=== PATIENT | female | born 1960 | race Caucasian/White ===

== ENCOUNTER → 2017-02-08 | Outpatient (CLI) | payer OTHER ==
[2017-02-08 15:10] LABS: EKG EKG PERFORMED
[2017-02-08 15:26] LABS: CHCM 31.3; HCT 41.7 % (34.0-46.0); HDW 2.66; HGB 13.4 gm/dL (11.4-16.0); Hypochromasia Slight; MCH 26.9 pg (25.0-35.0); MCHC 32.2 g/dL (31.0-37.0); MCV 83.4 fL (80.0-100.0); Mean Platelet Volume 8.3; RBC 4.99 m/uL (3.80-5.40); RDW 13.3 % (11.5-15.5); WBC 9.4 k/uL (3.8-10.6)
[2017-02-08 15:30] LABS: ALT 41 U/L (9-52); AST 26 U/L (14-36); Alkaline Phosphatase 116 U/L (38-126); Anion Gap 12 mmol/L; Blood Urea Nitrogen 25 mg/dL (7-17); Calcium 9.5 mg/dL (8.4-10.2); Carbon Dioxide 27 mmol/L (22-30); Chloride 105 mmol/L (98-107); Glucose 107 mg/dL (74-99); Non-African American GFR(MDRD) >60 (>60 ml/min/1.73 sqM); Potassium 4.5 mmol/L (3.5-5.1); Prothrombin Time 10.6 sec (9.0-12.0); Sodium 144 mmol/L (137-145); Total Bilirubin 0.5 mg/dL (0.2-1.3); Total Protein 7.2 g/dL (6.3-8.2)
[2017-02-08 15:32] LABS: Appearance,Urine Clear (Clear); Bilirubin,Urine Negative (Negative); Glucose,Urine (UA) Negative (Negative); Ketones,Urine Negative (Negative); Leukocyte Esterase,Urine Negative (Negative); Nitrite,Urine Negative (Negative); Protein,Urine Negative (Negative); Specific Gravity,Urine 1.013 (1.001-1.035); UA Billing (MACRO vs. MICRO) CHEM; Urobilinogen,Urine <2.0 mg/dL (<2.0)
== END | disposition home or self-care (01) ==
LOC: LABPAT 14:55
PROVIDERS: ATTEND Orthopaedic Surgery
DX: Z01.810 Encounter for preprocedural cardiovascular examination (principal)
CPT/HCPCS: 80053; 81003; 85027; 85610; 85730; 87070; 93005

== ENCOUNTER 2017-03-01 04:22 | Inpatient (IN) | payer OTHER ==
[2017-02-22 11:06] VITALS: BMI 42.0
[2017-03-01] MEDS ORDERED: ONDANSETRON 4 MG/2 ML VIAL IVP ONE ×2 (05:00→05:24)
[2017-03-01] MEDS ORDERED: ceFAZolin 2 GM in SODIUM CHLORIDE 0.9% 100 ML IVPB ONE (05:00)
[2017-03-01] MEDS ORDERED: TRANEXAMIC ACID 1,000 MG in SODIUM CHLORIDE 0.9% 100 ML IVPB ONE ×4 (05:00)
[2017-03-01] MEDS ORDERED: ACETAMINOPHEN TAB 500 MG TAB PO ONE (05:00)
[2017-03-01] MEDS ORDERED: MELOXICAM 7.5 MG TAB PO ONE (05:00)
[2017-03-01] MEDS ORDERED: SCOPOLAMINE 1.5MG/72HR PATCH TRANSDERM ONE (05:24)
[2017-03-01] MEDS ORDERED: DEXAMETHASONE SOD PHOSPHATE 10 MG/ML 1 ML VIAL IV ONE (05:24)
[2017-03-01] MEDS ORDERED: MIDAZOLAM 2 MG/2 ML VIAL IV PRN (05:24)
[2017-03-01] MEDS ORDERED: HYDROmorphone 1 MG/ML 1 ML SYRINGE IVP PRN ×4 (05:24→10:16)
[2017-03-01] MEDS: LACTATED RINGERS 1,000 ML IV SCH ×5 (07:00→20:11)
[2017-03-01] MEDS ORDERED: LIDOCAINE 1% 20 ML VIAL (10MG/ML) FOR IV START INTRADERMA ONE (07:04)
[2017-03-01] MEDS ORDERED: fentaNYL (PF) 50 MCG/ML 2 ML AMP ONE (07:48)
[2017-03-01] MEDS ORDERED: MIDAZOLAM 2 MG/2 ML VIAL ONE (07:48)
[2017-03-01] MEDS ORDERED: PROPOFOL 10 MG/ML 20 ML VIAL IV ONE (07:48)
[2017-03-01] MEDS ORDERED: SODIUM CHLORIDE 0.9% 100 ML BAG ONE (07:48)
[2017-03-01] MEDS ORDERED: TRANEXAMIC ACID 1,000 MG/10 ML VIAL ONE (07:48)
[2017-03-01] MEDS ORDERED: SODIUM CHLORIDE 0.9% 50 ML with ceFAZolin 1,000 MG IV ONE ×2 (07:55)
[2017-03-01] MEDS ORDERED: ROPIVACAINE 246.25 MG, EPINEPHrine 0.5 MG, KETOROLAC 30 MG, cloNIDine HCL/PF 80 MCG, WA... MISCELLANE ONE ×5 (08:00)
[2017-03-01] MEDS ORDERED: ceFAZolin 3,000 MG in SODIUM CHLORIDE 0.9% IRRIGATIO 3,000 ML IRRIGATION ONE (08:20)
[2017-03-01] MEDS ORDERED: LACTATED RINGERS 1,000 ML IV ONE (09:47)
[2017-03-01] MEDS ORDERED: ACETAMINOPHEN TAB 325 MG TAB PO PRN (10:16)
[2017-03-01] MEDS ORDERED: hydrOXYzine PAMOATE 25 MG CAP PO PRN (10:16)
[2017-03-01] MEDS ORDERED: MAGNESIUM HYDROXIDE 2,400 MG/10 ML CUP PO PRN (10:16)
[2017-03-01] MEDS ORDERED: ONDANSETRON 4 MG/2 ML VIAL IVP PRN (10:16)
[2017-03-01] MEDS ORDERED: NA PHOS,M-B/NA PHOS,DI-BA 133 ML ENEMA RECTAL PRN (10:16)
[2017-03-01] MEDS ORDERED: BISACODYL 10 MG SUPP RECTAL PRN (10:16)
[2017-03-01] MEDS ORDERED: NALOXONE 0.4 MG/ML 1 ML VIAL IV PRN (10:16)
[2017-03-01] MEDS ORDERED: HYDROcodone/APAP 5-325MG 1 EACH TAB PO PRN (10:16)
--- NOTE | 2017-03-01 10:37 | XR ---
EXAMINATION TYPE: XR knee limited RT DATE OF EXAM: 03/01/2017 COMPARISON: NONE TECHNIQUE: Two views submitted HISTORY: Post op FINDINGS: There is a prosthetic knee in near anatomic alignment. There is soft tissue edema and emphysema. IMPRESSION: 1. Postoperative change. Appears in near-anatomic alignment
[2017-03-01 10:47] VITALS: RESP 16
--- NOTE | 2017-03-01 10:51 | P.OP ---
Date of Procedure: 03/01/17 Preoperative Diagnosis: Postoperative Diagnosis: Procedure(s) Performed: PREOPERATIVE DIAGNOSIS: Right knee severe osteoarthritis with genu varum POSTOPERATIVE DIAGNOSIS: Right knee severe osteoarthritis with genu varum OPERATION: Right knee cemented total replacement arthroplasty. ANESTHESIA: Spinal ESTIMATED BLOOD LOSS: 100 ml. WARD SERVICE SUPERVISOR: Tayler Vargas PA-C (assistance with: patient positioning, retraction, exposure, hemostasis, leg positioning, implantation, irrigation, closure, dressing) COMPLICATIONS: None apparent. COMPONENTS IMPLANTED: Persona system from [employer] INDICATIONS: Ms. Knott is a 56-year-old female with a history of bilateral knee osteoarthritis. The patient's knees are end-stage, and conservative management has failed. Although she has a history of morbid obesity, she has attempted various weight loss modalities including bariatric surgery with limited success. She wishes to proceed with right knee replacement first, understanding the increased risk of complications secondary to her obesity. The operation of knee replacement has been discussed at length in the office, as well as potential risks and complications. These are inclusive of, but not limited to: bleeding, infection, scarring, discomfort, blood vessel and nerve damage, need for further surgery, failure to relieve symptoms, persistence, recurrence, or worsening of problems, loosening, dislocation, wear, blood clot, pulmonary embolism, , gait dysfunction, stiffness, and other risks as discussed in the office. The patient elects to proceed and the consent form has been signed. PROCEDURE: The patient was taken to the operating room and positioned on the operating room table in the supine position. Anesthesia was initiated. Care was taken to make sure that all pressure points were adequately padded. The operative lower extremity was prepped and draped in the usual aseptic fashion using ChloraPrep. Ioban drape was used for the case and the patient received intravenous antibiotics within one hour of the incision. A pneumotourniquet and leg boucher were used for the case. The limb was exsanguinated with an Esmarch bandage and the tourniquet was inflated to 350 mmHg. Time-out was called confirming the patient's identity, side, procedure and administration of antibiotics. The incision was then created midline directly over the knee, carried down through skin and into the subcutaneous tissues and down to fascia. Full thickness subcutaneous medial flap was developed. Medial parapatellar arthrotomy was performed and the interior of the knee was inspected. There was end-stage osteoarthritis of the knee with a mild to moderate genu varum type deformity. The fat pad was excised and proximal medial release on the tibia was completed using meticulous dissection and a curved osteotome. The anterior cruciate ligament was taken down. Note was made of significant attrition of the anterior and significant degenerative appearance of the posterior cruciate ligaments. The exposure was excellent. The knee was flexed 90 degrees and the patella was everted. A spot was chosen on the femur approximately 1 cm anterior to the posterior cruciate ligament insertion and an intramedullary hole was created within the femur. The intramedullary guide was then set to 5 degrees of valgus. The distal cutting block was attached and pinned into position. An appropriate amount of distal femoral resection was set. The oscillating saw was then used to make the distal femoral cut. This cut was confirmed to be flat with the flat end of an osteotome. The retractors were placed around the tibia and the tibial surface was addressed. The angle and depth of resection was adjusted using an extramedullary cutting guide. The guide had a built-in 3 degree posterior slope cut. Once the cutting guide was adjusted appropriately and in line with the axis of the tibia and confirmed to be in good position in relation to the second metatarsal and transmalleolar axis, the tibial cut was then created with protection of the posterior neurovascular structures and the collateral ligaments. The tibial cut surface was removed and sized. Femoral sizing was then accomplished using anterior referencing. Care was taken to analyze the posterior condyles for signs of deficiency or severe wear, and adjustments to the guide were made, as appropriate. 3 degree external rotation pins were placed. The cutting jig for the femur was applied to these pins. The planned cuts were further analyzed prior to performing them with the oscillating saw. No femoral notching was produced. Bone fragments were removed and the cut surfaces were finished, as necessary, with a reciprocating saw. Spacer block technique was then used to confirm that the flexion and extension gaps were equal. Soft tissue releases and adjustment of the tibial and/or femoral cuts were made, as necessary, until the gaps were equal. This included release of the posterior cruciate ligament, which was tight in this patient and , if left unreleased, would have resulted in poor kinematics and possibly early loosening. The femur was then further finished for a posterior cruciate ligament substituting component. Patellar resurfacing was performed using a reamer. The size of the required patellar component was estimated and the patellar surface was then reamed down to a residual thickness which would recreate the [place] thickness with the component. The placement of the patellar component was influenced by the degree of patellar subluxation, if any, noted on the preoperative x-rays. Prior to placing trial components, anesthetic solution consisting of ropivicaine with epinephrine, ketorolac, and clonidine was injected carefully and methodically in a grid pattern using aspiration technique into the soft tissue around the knee circumferentially, starting with the deeper tissues first and progressing to fascia, and then finally the skin/subcutaneous tissue. Particular care was taken when injecting the posterior capsule. The trial components were inserted. The tibial tray was allowed to self center and the patella was noted to track very well. The position of the tibial component was marked and the tibia was then finished for a stemmed tibial component. Cement was mixed on the back table and applied to the final components. Trial components were removed and the cut surfaces of the bone were pulse lavaged thoroughly and dried. Cement was then applied to the tibial surface and pressurized into the surface using finger pressurization technique. The tibial component was then applied and excess cement was removed after it was impacted securely and noted to be flush with the cut surface. In similar fashion, the cement was applied to the cut femoral surface, pressurized in using finger pressurization and the component was impacted into place. Excess cement was removed. The polyethylene spacer was then implanted and locked into position. The patellar component was then applied in similar technique and a patellar clamp was used to hold the patella in place as the cement hardened. Once the cement had fully hardened, the knee was reinspected. Any other cement extrusion was removed and final kinematic testing showed range of motion from 0 to 130 degrees with excellent stability, both medially and laterally and appropriate alignment of the leg. Patellar tracking was excellent. The knee was then thoroughly pulse lavaged with normal saline. The tourniquet was deflated and hemostasis was obtained with electrocautery and IV tranexamic acid, 1 g given at the start of the operation and 1 g at the start of closure. Closure was with #2 Ethibond in the fascia/capsule and supplemented with #2 Quill, 2-0 Vicryl suture was used for the subcutaneous tissues and 3-0 Quill for the skin. Dermabond/Steri-Strips were then applied. A lightly compressive dressing was applied using Webril and an Elmer wrap. The patient was then transferred to [facility] and taken to the recovery room in stable condition. Sponge and needle counts were correct. Implants: Indications for Procedure: Operative Findings: Description of Procedure:
[2017-03-01] MEDS: HYDROcodone/APAP 5-325MG 1 EACH TAB PO PRN ×3 (12:18→23:45)
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
[2017-03-01] MEDS: ceFAZolin 2 GM in SODIUM CHLORIDE 0.9% 100 ML IVPB SCH ×2 (18:10→23:37)
[2017-03-01] MEDS: ASPIRIN 325 MG TAB PO SCH (20:08)
[2017-03-01] MEDS ORDERED: SENNOSIDES-DOCUSATE SODIUM 1 EACH TAB PO SCH (21:00)
[2017-03-01] MEDS ORDERED: TEMAZEPAM 15 MG CAP PO PRN (22:00)
[2017-03-02] MEDS: LACTATED RINGERS 1,000 ML IV SCH (03:41)
[2017-03-02] MEDS: HYDROcodone/APAP 5-325MG 1 EACH TAB PO PRN ×2 (05:30→12:23)
[2017-03-02 07:33] LABS: Basophils % (A) 0 %; CH 26.2; CHCM 31.2; Eosinophils % (A) 0 %; HCT 32.9 % (34.0-46.0); HDW 2.55; HGB 10.5 gm/dL (11.4-16.0); Hypochromasia Slight; Luc % (Auto) 1; Lymphocytes # (A) 1.3 k/uL (1.0-4.8); Lymphocytes % (A) 11 %; MCH 26.9 pg (25.0-35.0); MCV 84.1 fL (80.0-100.0); Mean Platelet Volume 8.5; Monocytes # (A) 0.5 k/uL (0-1.0); Monocytes % (A) 4 %; Neutrophils # (A) 10.4 k/uL (1.3-7.7); Neutrophils % (A) 84 %; RBC 3.91 m/uL (3.80-5.40); RDW 13.4 % (11.5-15.5); WBC 12.4 k/uL (3.8-10.6); WBC (Perox) 12.04
[2017-03-02] MEDS: ASPIRIN 325 MG TAB PO SCH (07:33)
[2017-03-02] MEDS ORDERED: MELOXICAM 7.5 MG TAB PO SCH (09:00)
[2017-03-02 09:41] VITALS: BP 123/77; PULSE 54; TEMP 97.4
--- NOTE | 2017-03-02 10:11 | P.DS ---
Providers Date of admission: 03/01/17 06:12 Expected date of discharge: 03/02/17 Attending physician: Juan Bustamante Consults: 03/01/17 10:16 Consult Physician Routine Consulting Provider: Sixto Licea Consult Reason/Comments: medical management Do you want consulting provider notified?: Yes Primary care physician: Sb Lopez - Discharge Diagnosis(es) (1) Primary localized osteoarthritis of right knee Current Visit: Yes Status: Acute (2) Status post right knee replacement Current Visit: Yes Status: Acute Hospital Course: This is a 56-year-old female who was last seen with complaint of continued right knee pain. The patient has a known history of degenerative arthritis of the right knee and presents to discuss surgical options. After discussion and consideration the patient elects to proceed with total right knee arthroplasty. The patient is seen preoperatively by Dr. Brenner and cleared for surgery. The patient is admitted to [facility] for total right knee arthroplasty. The procedures performed without complication or sequelae. Patient is doing well postoperatively. Vital signs are stable at discharge. Labs are stable at discharge. the patient is ambulating well with walker with minimal assistance. The patient is discharged to home on postop day #1 pending medical clearance. Please see orders and refer to the med rec for accurate list of medications. Patient Condition at Discharge: Good Plan - Discharge Summary New Discharge Prescriptions: New HYDROcodone/APAP 5-325MG [[place] 5-325] 1 - 2 each PO Q4-6H PRN #90 tab PRN Reason: Pain Sennosides-Docusate Sodium [Senokot-S] 1 tab PO BID #60 tablet Warfarin [Coumadin] 2.5 mg PO DAILY #30 tab No Action Loratadine [Claritin] 10 mg PO DAILY PRN PRN Reason: allergies Furosemide [Lasix] 40 mg PO DAILY Citalopram Hydrobromide [CeleXA] 40 mg PO QAM Omeprazole [PriLOSEC] 40 mg PO AC-BRKFST #30 cap traMADol HCL [Ultram] 50 mg PO Q6H PRN PRN Reason: Pain Cetirizine HCl [Zyrtec] 10 mg PO DAILY PRN PRN Reason: allergies Meloxicam [Mobic] 15 mg PO DAILY Discharge Medication List Citalopram Hydrobromide [CeleXA] 40 mg PO QAM 06/03/15 [History] Furosemide [Lasix] 40 mg PO DAILY 06/03/15 [History] Loratadine [Claritin] 10 mg PO DAILY PRN 06/03/15 [History] Omeprazole [PriLOSEC] 40 mg PO AC-BRKFST #30 cap 06/05/15 [Rx] Cetirizine HCl [Zyrtec] 10 mg PO DAILY PRN 02/22/17 [History] Meloxicam [Mobic] 15 mg PO DAILY 02/22/17 [History] traMADol HCL [Ultram] 50 mg PO Q6H PRN 02/22/17 [History] HYDROcodone/APAP 5-325MG [[place] 5-325] 1 - 2 each PO Q4-6H PRN #90 tab 03/01/17 [Rx] Sennosides-Docusate Sodium [Senokot-S] 1 tab PO BID #60 tablet 03/01/17 [Rx] Warfarin [Coumadin] 2.5 mg PO DAILY #30 tab 03/02/17 [Rx] Follow up Appointment(s)/Referral(s): aTyler Vargas, PAC [PHYSICIAN [facility]] - 2 Weeks Ambulatory/Diagnostic Orders: Continuous Passive Motion (CPM) Machine [DME.AMB1] Time Frame: 3 Weeks, Facility : [facility], Location: Case Management Prothrombin Time INR [LAB.AMB] Location: Determined By Patient Activity/Diet/Wound Care/Special Instructions: May bear wt as tolerated w walker. May shower if no drainage from incision. CPM 5-6h daily. Discharge Disposition: HOME WITH HOME HEALTH SERVICES
== END 2017-03-02 13:00 | disposition home health service (06) | DRG 470 ==
LOC: 2ORMAIN 06:12 → 3SUR 10:15
PROVIDERS: ADMIT Orthopaedic Surgery; ATTEND Orthopaedic Surgery
PROC: 0SRC0J9 Replacement of Right Knee Joint with Synthetic Substitute, Cemented, Open Approach (ICD-10-PCS; principal; 2017-03-01 08:00)
DX: M17.11 Unilateral primary osteoarthritis, right knee (principal); E66.01 Morbid (severe) obesity due to excess calories; I11.9 Hypertensive heart disease without heart failure; I36.1 Nonrheumatic tricuspid (valve) insufficiency; M21.161 Varus deformity, not elsewhere classified, right knee; I48.0 Paroxysmal atrial fibrillation; E78.1 Pure hyperglyceridemia; E78.5 Hyperlipidemia, unspecified; R60.0 Localized edema; G47.33 Obstructive sleep apnea (adult) (pediatric); K21.9 Gastro-esophageal reflux disease without esophagitis; F90.9 Attention-deficit hyperactivity disorder, unspecified type; I83.91 Asymptomatic varicose veins of right lower extremity; R26.81 Unsteadiness on feet; F32.9 Major depressive disorder, single episode, unspecified; F41.9 Anxiety disorder, unspecified; Z87.891 Personal history of nicotine dependence; Z79.891 Long term (current) use of opiate analgesic; Z96.651 Presence of right artificial knee joint; Z79.1 Long term (current) use of non-steroidal anti-inflammatories (NSAID); Z80.8 Family history of malignant neoplasm of other organs or systems; Z79.899 Other long term (current) drug therapy; Z82.49 Family history of ischemic heart disease and other diseases of the circulatory system; Z90.710 Acquired absence of both cervix and uterus; Z90.49 Acquired absence of other specified parts of digestive tract; Z98.84 Bariatric surgery status; Z90.411 Acquired partial absence of pancreas; Z91.410 Personal history of adult physical and sexual abuse; Z87.19 Personal history of other diseases of the digestive system; Z87.11 Personal history of peptic ulcer disease
CPT/HCPCS: 85025; 88300

== ENCOUNTER → 2017-04-19 | Outpatient (CLI) | payer OTHER ==
[2017-04-19 12:25] LABS: CHCM 31.4; HCT 38.6 % (34.0-46.0); HDW 2.74; HGB 12.2 gm/dL (11.4-16.0); Hypochromasia Slight; MCH 26.4 pg (25.0-35.0); MCHC 31.7 g/dL (31.0-37.0); Mean Platelet Volume 8.1; RBC 4.64 m/uL (3.80-5.40); RDW 14.3 % (11.5-15.5); WBC 8.1 k/uL (3.8-10.6)
[2017-04-19 12:29] LABS: Appearance,Urine Clear (Clear); Bilirubin,Urine Negative (Negative); Glucose,Urine (UA) Negative (Negative); Ketones,Urine Negative (Negative); Leukocyte Esterase,Urine Negative (Negative); Nitrite,Urine Negative (Negative); Protein,Urine Negative (Negative); Specific Gravity,Urine 1.016 (1.001-1.035); UA Billing (MACRO vs. MICRO) CHEM; Urobilinogen,Urine <2.0 mg/dL (<2.0)
[2017-04-19 12:38] LABS: ALT 35 U/L (9-52); AST 25 U/L (14-36); Alkaline Phosphatase 120 U/L (38-126); Anion Gap 9 mmol/L; Blood Urea Nitrogen 25 mg/dL (7-17); Calcium 9.5 mg/dL (8.4-10.2); Carbon Dioxide 31 mmol/L (22-30); Chloride 101 mmol/L (98-107); Glucose 89 mg/dL (74-99); Non-African American GFR(MDRD) >60 (>60 ml/min/1.73 sqM); Potassium 5.3 mmol/L (3.5-5.1); Sodium 141 mmol/L (137-145); Total Bilirubin 0.4 mg/dL (0.2-1.3); Total Protein 7.3 g/dL (6.3-8.2)
[2017-04-19 12:47] LABS: Partial Thromboplastin Time 23.7 sec (22.0-30.0)
== END | disposition home or self-care (01) ==
LOC: LABPAT 11:11
PROVIDERS: ATTEND Orthopaedic Surgery
DX: Z01.812 Encounter for preprocedural laboratory examination (principal); Z01.818 Encounter for other preprocedural examination; Z51.81 Encounter for therapeutic drug level monitoring; Z79.01 Long term (current) use of anticoagulants
CPT/HCPCS: 36415; 80053; 81003; 85027; 85610; 85730; 87070

== ENCOUNTER 2017-05-10 12:59 | Inpatient (IN) | payer OTHER ==
[2017-05-03 10:51] VITALS: BMI 41.1
[~2017-05-10 12:59] MED LIST: ACETAMINOPHEN TAB 500 MG TAB PO ONE; HYDROmorphone 0.5 MG/0.5 ML SYRINGE IVP PRN; LACTATED RINGERS 1,000 ML IV SCH; LIDOCAINE 1% 20 ML VIAL (10MG/ML) FOR IV START INTRADERMA PRN; MELOXICAM 7.5 MG TAB PO ONE; ONDANSETRON 4 MG/2 ML VIAL IVP ONE; TRANEXAMIC ACID 1,000 MG in SODIUM CHLORIDE 0.9% 100 ML IVPB ONE; ceFAZolin 2 GM in SODIUM CHLORIDE 0.9% 100 ML IVPB ONE
--- NOTE | 2017-05-10 15:33 | P.OP ---
Date of Procedure: 05/10/17 Procedure(s) Performed: PREOPERATIVE DIAGNOSIS: Left knee severe osteoarthritis with genu varum POSTOPERATIVE DIAGNOSIS: Left knee severe osteoarthritis with genu varum OPERATION: Left knee cemented total replacement arthroplasty. ANESTHESIA: Spinal ESTIMATED BLOOD LOSS: 100 ml. SUPERINT[employer]ENT [employer]: Tayler Vargas PA-C (assistance with: patient positioning, retraction, exposure, hemostasis, leg positioning, implantation, irrigation, closure, dressing) COMPLICATIONS: None apparent. COMPONENTS IMPLANTED: Persona system from [employer] INDICATIONS: Mrs. Knott is a 57-year-old female with a history of knee osteoarthritis. She has already undergone right knee replacement successfullya few months ago. The operation of knee replacement has been discussed at length in the office, as well as potential risks and complications. These are inclusive of, but not limited to: bleeding, infection, scarring, discomfort, blood vessel and nerve damage, need for further surgery, failure to relieve symptoms, persistence, recurrence, or worsening of problems, loosening, dislocation, wear, blood clot, pulmonary embolism, , gait dysfunction, stiffness, and other risks as discussed in the office. The patient elects to proceed and the consent form has been signed. PROCEDURE: The patient was taken to the operating room and positioned on the operating room table in the supine position. Anesthesia was initiated. Care was taken to make sure that all pressure points were adequately padded. The operative lower extremity was prepped and draped in the usual aseptic fashion using ChloraPrep. Ioban drape was used for the case and the patient received intravenous antibiotics within one hour of the incision. A pneumotourniquet and leg boucher were used for the case. The limb was exsanguinated with an Esmarch bandage and the tourniquet was inflated to 300 mmHg. Time-out was called confirming the patient's identity, side, procedure and administration of antibiotics. The incision was then created midline directly over the knee, carried down through skin and into the subcutaneous tissues and down to fascia. Full thickness subcutaneous medial flap was developed. Medial parapatellar arthrotomy was performed and the interior of the knee was inspected. There was end-stage osteoarthritis of the knee with a mild to moderate genu varum type deformity. The fat pad was excised and proximal medial release on the tibia was completed using meticulous dissection and a curved osteotome. The anterior cruciate ligament was taken down. Note was made of significant attrition of the anterior and significant degenerative appearance of the posterior cruciate ligaments. The exposure was excellent. The knee was flexed 90 degrees and the patella was everted. A spot was chosen on the femur approximately 1 cm anterior to the posterior cruciate ligament insertion and an intramedullary hole was created within the femur. The intramedullary guide was then set to 5 degrees of valgus. The distal cutting block was attached and pinned into position. An appropriate amount of distal femoral resection was set. The oscillating saw was then used to make the distal femoral cut. This cut was confirmed to be flat with the flat end of an osteotome. The retractors were placed around the tibia and the tibial surface was addressed. The angle and depth of resection was adjusted using an extramedullary cutting guide. The guide had a built-in 3 degree posterior slope cut. Once the cutting guide was adjusted appropriately and in line with the axis of the tibia and confirmed to be in good position in relation to the second metatarsal and transmalleolar axis, the tibial cut was then created with protection of the posterior neurovascular structures and the collateral ligaments. The tibial cut surface was removed and sized. Femoral sizing was then accomplished using anterior referencing. Care was taken to analyze the posterior condyles for signs of deficiency or severe wear, and adjustments to the guide were made, as appropriate. 3 degree external rotation pins were placed. The cutting jig for the femur was applied to these pins. The planned cuts were further analyzed prior to performing them with the oscillating saw. No femoral notching was produced. Bone fragments were removed and the cut surfaces were finished, as necessary, with a reciprocating saw. Spacer block technique was then used to confirm that the flexion and extension gaps were equal. Soft tissue releases and adjustment of the tibial and/or femoral cuts were made, as necessary, until the gaps were equal. This included release of the posterior cruciate ligament, which was tight in this patient and , if left unreleased, would have resulted in poor kinematics and possibly early loosening. The femur was then further finished for a posterior cruciate ligament substituting component. Patellar resurfacing was performed using a reamer. The size of the required patellar component was estimated and the patellar surface was then reamed down to a residual thickness which would recreate the nightmute thickness with the component. The placement of the patellar component was influenced by the degree of patellar subluxation, if any, noted on the preoperative x-rays. Prior to placing trial components, anesthetic solution consisting of ropivicaine with epinephrine, ketorolac, and clonidine was injected carefully and methodically in a grid pattern using aspiration technique into the soft tissue around the knee circumferentially, starting with the deeper tissues first and progressing to fascia, and then finally the skin/subcutaneous tissue. Particular care was taken when injecting the posterior capsule. The trial components were inserted. The tibial tray was allowed to self center and the patella was noted to track very well. The position of the tibial component was marked and the tibia was then finished for a stemmed tibial component. Cement was mixed on the back table and applied to the final components. Trial components were removed and the cut surfaces of the bone were pulse lavaged thoroughly and dried. Cement was then applied to the tibial surface and pressurized into the surface using finger pressurization technique. The tibial component was then applied and excess cement was removed after it was impacted securely and noted to be flush with the cut surface. In similar fashion, the cement was applied to the cut femoral surface, pressurized in using finger pressurization and the component was impacted into place. Excess cement was removed. The polyethylene spacer was then implanted and locked into position. The patellar component was then applied in similar technique and a patellar clamp was used to hold the patella in place as the cement hardened. Once the cement had fully hardened, the knee was reinspected. Any other cement extrusion was removed and final kinematic testing showed range of motion from 0 to 130 degrees with excellent stability, both medially and laterally and appropriate alignment of the leg. Patellar tracking was excellent. The knee was then thoroughly pulse lavaged with normal saline. The tourniquet was deflated and hemostasis was obtained with electrocautery and IV tranexamic acid, 1 g given prior to inflation of the tourniquet and another gram given at the time of closure. Closure was with #2 Ethibond in the fascia and supplemented with #2 Quill, 2-0 Vicryl suture was used for the subcutaneous tissues and 3-0 Quill for the skin. Dermabond/Steri-Strips were then applied. A lightly compressive dressing was applied using Webril and an Elmer wrap. The patient was then transferred to stretcher and taken to the recovery room in stable condition. Sponge and needle counts were correct.
[2017-05-10] MEDS ORDERED: ROPIVACAINE 246.25 MG, EPINEPHrine 0.5 MG, KETOROLAC 30 MG, cloNIDine HCL/PF 80 MCG, WA... MISCELLANE STA ×5 (15:38)
[2017-05-10] MEDS ORDERED: NA PHOS,M-B/NA PHOS,DI-BA 133 ML ENEMA RECTAL PRN (15:39)
[2017-05-10] MEDS ORDERED: BISACODYL 10 MG SUPP RECTAL PRN (15:39)
[2017-05-10] MEDS ORDERED: HYDROmorphone 0.5 MG/0.5 ML SYRINGE IVP PRN ×2 (15:39)
[2017-05-10] MEDS ORDERED: ONDANSETRON 4 MG/2 ML VIAL IVP PRN (15:39)
[2017-05-10] MEDS ORDERED: ACETAMINOPHEN TAB 325 MG TAB PO PRN (15:39)
[2017-05-10] MEDS ORDERED: NALOXONE 0.4 MG/ML 1 ML VIAL IV PRN (15:39)
[2017-05-10] MEDS ORDERED: hydrOXYzine PAMOATE 25 MG CAP PO PRN (15:39)
[2017-05-10] MEDS ORDERED: HYDROcodone/APAP 5-325MG 1 EACH TAB PO PRN (15:39)
[2017-05-10] MEDS ORDERED: MAGNESIUM HYDROXIDE 2,400 MG/10 ML CUP PO PRN (15:39)
[2017-05-10] MEDS ORDERED: ceFAZolin 3 GM in SODIUM CHLORIDE 0.9% 100 ML IVPB SCH (16:00)
[2017-05-10] MEDS ORDERED: TRANEXAMIC ACID 1,000 MG/10 ML VIAL ONE (16:01)
[2017-05-10] MEDS ORDERED: PROPOFOL 10 MG/ML 20 ML VIAL IV ONE (16:01)
[2017-05-10] MEDS ORDERED: diphenhydrAMINE 50 MG/ML 1 ML VIAL ONE (16:01)
[2017-05-10] MEDS ORDERED: SODIUM CHLORIDE 0.9% 100 ML BAG ONE (16:01)
[2017-05-10] MEDS ORDERED: fentaNYL (PF) 50 MCG/ML 2 ML AMP ONE (16:01)
[2017-05-10] MEDS ORDERED: MIDAZOLAM 2 MG/2 ML VIAL ONE (16:01)
[2017-05-10] MEDS ORDERED: ceFAZolin 3,000 MG in SODIUM CHLORIDE 0.9% IRRIGATIO 3,000 ML IRRIGATION ONE (16:02)
--- NOTE | 2017-05-10 19:37 | XR ---
PROCEDURE: XR knee limited LT DATE AND TIME: 05/10/2017 7:13 PM REFERRING PHYSICIAN: Tayler Vargas CLINICAL INDICATION: PHH, Evaluation for Postop abnormality and alignment TECHNIQUE: Department protocol. AP and crosstable lateral views. COMPARISON: None FINDINGS: Postoperative soft tissue swelling is noted. TKR appears anatomic in positioning and alignm ent. No unexpected radiopaque foreign bodies. IMPRESSION: POSTOPERATIVE.
[2017-05-10 19:39] VITALS: RESP 16
[2017-05-10] MEDS: LACTATED RINGERS 1,000 ML IV SCH (20:31)
[2017-05-10] MEDS ORDERED: SENNOSIDES-DOCUSATE SODIUM 1 EACH TAB PO SCH (21:00)
[2017-05-10] MEDS ORDERED: LORATADINE 10 MG TAB PO PRN (21:20)
[2017-05-10] MEDS: ceFAZolin 3 GM in SODIUM CHLORIDE 0.9% 100 ML IVPB SCH (23:19)
[2017-05-10] MEDS: HYDROcodone/APAP 5-325MG 1 EACH TAB PO PRN (23:22)
[2017-05-11] MEDS: LACTATED RINGERS 1,000 ML IV SCH ×2 (03:47→08:01)
[2017-05-11] MEDS: HYDROcodone/APAP 5-325MG 1 EACH TAB PO PRN (05:11)
--- NOTE | 2017-05-11 06:33 | CONS ---
CONSULTATION DATE OF CONSULTATION: 05/10/17. REASON FOR CONSULTATION: Medical management requested by Dr. Bustamante. CONSULTATION: This is a pleasant 57-year-old patient who follows with Dr. Avendano. Has undergone a left total knee arthroplasty. Post procedure some pain is present. No nausea, vomiting. Chronic stable medical conditions include GERD, osteoarthritis in the hips, obstructive sleep apnea, some anxiety and depression. Denies any other cardiac history, but had atrial fibrillation last back in 2012. REVIEW OF SYSTEMS: CONSTITUTIONAL: None. HEENT: None. RESPIRATORY: None. CARDIOVASCULAR: None. GASTROINTESTINAL: Heartburn. GENITOURINARY: None. MUSCULOSKELETAL: Arthritic pain in the hips. DERMATOLOGICAL: None. HEMATOLOGIC: None. LYMPHATIC: None. PSYCHIATRY: Anxiety and depression controlled. NEUROLOGICAL: None. PAST HISTORY: Paroxysmal atrial fibrillation, GERD, osteoarthritis of the hips, hypertension that she lost because of weight loss, obstructive sleep apnea, varicose veins, anxiety and depression. PAST SURGICAL HISTORY: Bariatric surgery, cholecystectomy, hernia repair, hysterectomy, lap band, lap band removed and ventral hernia repair in 2016, EGD, Whipple's procedure, pancreas and benign tumor removed, right total knee arthroplasty. PSYCH HISTORY: Anxiety, depression, ADHD. SOCIAL HISTORY: Patient smoked a pack a day for 19 years. Stopped in . Alcohol rarely. Currently lives with sister. FAMILY HISTORY: Coronary artery disease, melanoma. HOME MEDICATIONS: Ultram 50 mg q.6 p.r.n., Prilosec 40 mg breakfast, Mobic 50 mg p.o. daily, Claritin 10 mg p.o. daily p.r.n., [place] 5 1-2 tablets q.4 p.r.n., Lasix 40 mg p.o. daily. Celexa 40 mg p.o. daily. Zyrtec 10 mg p.o. daily p.r.n., aspirin 325 p.o. daily. Senokot S 1 tab p.o. b.i.d., [place] 5 1-2 tablets q.4 p.r.n. ALLERGIES: None. PHYSICAL EXAMINATION: Temperature 97, pulse 73, respirations 13, blood pressure 102/76, pulse ox 95% on room air. GENERAL APPEARANCE: Well built, BMI 41.2, sitting up, not in distress. EYES: Pupils equal. conjunctivae normal. HEENT: Oral cavity normal. NECK: JVD not raised. Mass not palpable. RESPIRATORY: Effort normal. Lungs are clear. CARDIOVASCULAR: First and second sounds normal. No edema. ABDOMEN: Soft, nontender. Liver and spleen not palpable. LYMPHATIC: No lymph node palpable in neck or axillae. PSYCHIATRY: Alert and oriented x3. Mood and affect normal. NEUROLOGICAL: Pupils equal. Cranial nerves grossly intact. Power and sensation grossly intact. EXTREMITIES: Left knee in a dressing. INVESTIGATIONS: Potassium 4.1. The patient's lab work from April 19, 2017 shows a white count of 8.1, hemoglobin 12.2. Potassium was 4.1 on May 10, 2017. BUN and creatinine are normal. ASSESSMENT: 1. Left total knee arthroplasty. 2. Morbid obesity. BMI greater than 40. 3. Paroxysmal atrial fibrillation. Patient has remained in sinus rhythm. 4. Gastroesophageal reflux disease. 5. Primary osteoarthritis probably of the hips. 6. Obstructive sleep apnea. Uses a CPAP machine. 7. Anxiety and depression, not otherwise specified. PLAN: Home medications to be resumed. Patient will be getting DVT prophylaxis as per Dr. Bustamante, likely aspirin 325 p.o. b.i.d. Home medication otherwise resumed. Patient should see a dietitian for weight loss measures. Should follow up with Dr. Avendano upon discharge. Care was discussed with the patient. Questions were answered. Thank you, Dr. Bustamante. TAMIKA / ZACARIASN: [id number] /
[2017-05-11 07:03] VITALS: BP 109/55; PULSE 58; TEMP 97.8
[2017-05-11] MEDS ORDERED: PANTOPRAZOLE 40 MG TABLET PO SCH (07:30)
[2017-05-11] MEDS: ceFAZolin 3 GM in SODIUM CHLORIDE 0.9% 100 ML IVPB SCH (08:00)
[2017-05-11 08:08] LABS: Basophils % (A) 0 %; CH 25.1; CHCM 30.1; Eosinophils # (A) 0.2 k/uL (0-0.7); Eosinophils % (A) 2 %; HCT 34.7 % (34.0-46.0); HDW 2.63; HGB 10.5 gm/dL (11.4-16.0); Hypochromasia Marked; Luc # (Auto) 0.11; Luc % (Auto) 1; Lymphocytes # (A) 1.4 k/uL (1.0-4.8); Lymphocytes % (A) 15 %; MCH 25.2 pg (25.0-35.0); MCHC 30.2 g/dL (31.0-37.0); MCV 83.5 fL (80.0-100.0); Mean Platelet Volume 7.3; Monocytes # (A) 0.3 k/uL (0-1.0); Monocytes % (A) 4 %; Neutrophils # (A) 7.7 k/uL (1.3-7.7); Neutrophils % (A) 79 %; RBC 4.15 m/uL (3.80-5.40); RDW 13.5 % (11.5-15.5); WBC 9.8 k/uL (3.8-10.6); WBC (Perox) 9.59
[2017-05-11] MEDS ORDERED: ASPIRIN 325 MG TAB PO SCH (09:00)
[2017-05-11] MEDS ORDERED: FUROSEMIDE 40 MG TAB PO SCH (09:00)
[2017-05-11] MEDS ORDERED: MELOXICAM 7.5 MG TAB PO SCH (09:00)
[2017-05-11] MEDS ORDERED: CITALOPRAM HYDROBROMIDE 20 MG TAB PO SCH (09:00)
--- NOTE | 2017-05-11 09:40 | P.PN ---
Subjective Progress Note Date: 05/11/17 Objective - Vital Signs Vital signs: Vital Signs Temp 97.8 F 05/11/17 07:03 Pulse 58 L 05/11/17 07:03 Resp 16 05/11/17 07:03 BP 109/55 05/11/17 07:03 Pulse Ox 95 05/11/17 07:03 Intake & Output 05/10/17 05/11/17 05/11/17 18:59 06:59 18:59 Intake Total 701 1050 Output Total 100 Balance 601 1050 Weight 102.058 kg Intake: IV 701 250 Intake, IV Titration 800 Amount Lactated Ringers 1,000 ml 800 @ 100 mls/hr IV .Q10H NIKO Rx#:[id number] Output: Estimated Blood Loss 100 Other: # Voids 2 - Labs CBC & Chem 7: 05/11/17 07:01 05/10/17 13:40 Labs: Abnormal Lab Results - Last 24 Hours (Table) 05/11/17 Range/Units 07:01 Hgb 10.5 L (11.4-16.0) gm/dL MCHC 30.2 L (31.0-37.0) g/dL
[2017-05-11] MEDS ORDERED: HYDROcodone/APAP 7.5-325MG 1 EACH TAB PO PRN ×2 (09:51)
--- NOTE | 2017-05-11 11:21 | PN ---
PROGRESS NOTE DATE OF SERVICE: 05/11/2017 Left knee arthroplasty. INTERVAL HISTORY: Patient was seen and examined by me. Patient is doing really well. Pain is controlled. Did tolerate her breakfast. Comfortable. No new issues. Has been out of bed. Very keen to go home. REVIEW OF SYSTEMS: Done for constitutional, cardiovascular, GI, pulmonary, relevant findings as above. CURRENT MEDICATIONS: Reviewed. PHYSICAL EXAMINATION: Temp 97.8, pulse 58, respiration 16, blood pressure 109/55, pulse ox 95% room air. GENERAL: Propped up in bed, comfortable. EYES: Pupils equal, conjunctivae normal. NECK: JVD not raised. Mass not palpable. RESPIRATORY: Effort normal. Lungs are clear. CARDIOVASCULAR: First and second sounds normal, no edema. ABDOMEN: Soft, nontender. PSYCHIATRY: Alert and oriented x3. Mood and affect normal. EXTREMITIES: Left knee in a dressing. No edema. INVESTIGATIONS: White count 9.4, hemoglobin 10.5. ASSESSMENT: 1. Left total knee arthroplasty. 2. Morbid obesity. Body mass index greater than 40. 3. Paroxysmal atrial fibrillation, has remained in sinus rhythm. 4. Gastroesophageal reflux disease. 5. Primary osteoarthritis, probably of the hips. 6. Obstructive sleep apnea. Uses a CPAP machine. 7. Anxiety, depression, not otherwise specified. PLAN: Care was discussed with the patient. Really doing well. If discharged, should follow up with her family doctor upon discharge. Thank you, Dr. Bustamante. TAMIKA / ZACARIASN: [id number] /
--- NOTE | 2017-05-11 11:24 | P.DS ---
Providers Date of admission: 05/10/17 12:59 Expected date of discharge: 05/11/17 Attending physician: Juan Bustamante Consults: 05/10/17 15:39 Consult Physician Routine Consulting Provider: Diego Olivier Consult Reason/Comments: medical management Do you want consulting provider notified?: Yes - Discharge Diagnosis(es) (1) Primary localized osteoarthritis of left knee Current Visit: Yes Status: Acute (2) Status post left knee replacement Current Visit: Yes Status: Acute Hospital Course: This is a pleasant 57-year-old female last seen in our office with complaints of left knee pain. Patient has known history of degenerative arthritis of the left knee and presented to discuss options. After discussion and consideration , the patient elected to proceed with a left total knee arthroplasty. Patient was seen preoperatively, and medically cleared for surgery by her primary care physician. Patient was admitted to [facility] underwent left total knee arthroplasty on 05/10/[address] Bustamante. The procedure was performed without complications or sequelae. The patient is seen and evaluated at bedside today. Pain is well-controlled. Patient has no new complaints today and denies any fevers, chills, nausea, vomiting, or shortness of breath. Vital signs are stable. Dressing is clean dry and intact. Incision looks fine with no erythema or active drainage. Calf is soft and nontender. Patient has full foot and ankle motion without difficulty. Patient's left lower extremity is neurovascularly intact. The patient is orthopedically stable for discharge today. Patient Condition at Discharge: Stable Plan - Discharge Summary New Discharge Prescriptions: New Aspirin 325 mg PO BID #120 tab Sennosides-Docusate Sodium [Senokot-S] 1 tab PO BID #60 tablet HYDROcodone/APAP 7.5-325MG [[place] 7.5-325] 1 - 2 tab PO Q4-6H PRN #90 tab PRN Reason: Pain No Action Loratadine [Claritin] 10 mg PO DAILY PRN PRN Reason: allergies Furosemide [Lasix] 40 mg PO DAILY Citalopram Hydrobromide [CeleXA] 40 mg PO QAM Omeprazole [PriLOSEC] 40 mg PO AC-BRKFST #30 cap traMADol HCL [Ultram] 50 mg PO Q6H PRN PRN Reason: Pain Cetirizine HCl [Zyrtec] 10 mg PO DAILY PRN PRN Reason: allergies Meloxicam [Mobic] 15 mg PO DAILY Aspirin 325 mg PO DAILY HYDROcodone/APAP 5-325MG [[place] 5-325] 1 - 2 tab PO Q4-6H PRN PRN Reason: Pain Discharge Medication List Citalopram Hydrobromide [CeleXA] 40 mg PO QAM 06/03/15 [History] Furosemide [Lasix] 40 mg PO DAILY 06/03/15 [History] Loratadine [Claritin] 10 mg PO DAILY PRN 06/03/15 [History] Omeprazole [PriLOSEC] 40 mg PO AC-BRKFST #30 cap 06/05/15 [Rx] Cetirizine HCl [Zyrtec] 10 mg PO DAILY PRN 02/22/17 [History] Meloxicam [Mobic] 15 mg PO DAILY 02/22/17 [History] traMADol HCL [Ultram] 50 mg PO Q6H PRN 02/22/17 [History] Aspirin 325 mg PO BID #120 tab 05/10/17 [Rx] Aspirin 325 mg PO DAILY 05/10/17 [History] HYDROcodone/APAP 5-325MG [[place] 5-325] 1 - 2 tab PO Q4-6H PRN 05/10/17 [History] Sennosides-Docusate Sodium [Senokot-S] 1 tab PO BID #60 tablet 05/10/17 [Rx] HYDROcodone/APAP 7.5-325MG [[place] 7.5-325] 1 - 2 tab PO Q4-6H PRN #90 tab [Rx] Follow up Appointment(s)/Referral(s): Tayler Vargas, THAD [PHYSICIAN MEDICAL PARASITOLOGIST] - 05/26/17 1:45 pm [facility] Visiting Nurse, [NON-STAFF] - Ambulatory/Diagnostic Orders: Continuous Passive Motion (CPM) Machine [DME.AMB1] Time Frame: 3 Weeks, Facility : [facility], Location: Case Management Activity/Diet/Wound Care/Special Instructions: May shower if no drainage from incision. May bear wt as tolerated w walker. CPM 5-6h daily. CPM through [facility], please call when arrive home [phone] Discharge Disposition: HOME WITH HOME HEALTH SERVICES
[2017-05-11] MEDS ORDERED: MULTIVITAMINS, THERA 1 EACH TAB PO SCH (15:43)
== END 2017-05-11 13:30 | disposition home health service (06) | DRG 470 ==
LOC: 2ORMAIN 12:59 → 3SUR 19:08
PROVIDERS: ADMIT Orthopaedic Surgery; ATTEND Orthopaedic Surgery
PROC: 0SRD0J9 Replacement of Left Knee Joint with Synthetic Substitute, Cemented, Open Approach (ICD-10-PCS; principal; 2017-05-10 15:10)
DX: M17.12 Unilateral primary osteoarthritis, left knee (principal); E66.01 Morbid (severe) obesity due to excess calories; I10 Essential (primary) hypertension; M16.0 Bilateral primary osteoarthritis of hip; F32.9 Major depressive disorder, single episode, unspecified; F41.9 Anxiety disorder, unspecified; F90.9 Attention-deficit hyperactivity disorder, unspecified type; G47.33 Obstructive sleep apnea (adult) (pediatric); I48.0 Paroxysmal atrial fibrillation; K21.9 Gastro-esophageal reflux disease without esophagitis; M21.162 Varus deformity, not elsewhere classified, left knee; Z79.899 Other long term (current) drug therapy; Z80.8 Family history of malignant neoplasm of other organs or systems; Z82.49 Family history of ischemic heart disease and other diseases of the circulatory system; Z87.891 Personal history of nicotine dependence
CPT/HCPCS: 84132; 85025; 88300

== ENCOUNTER 2018-02-17 12:52 | Emergency (ER) | payer OTHER ==
[2018-02-17] MEDS ORDERED: SODIUM CHLORIDE 0.9% 500 ML IV STA (13:21)
[2018-02-17] MEDS ORDERED: MECLIZINE 12.5 MG TAB PO STA (13:21)
[2018-02-17] MEDS ORDERED: ONDANSETRON 4 MG/2 ML VIAL IVP STA (13:21)
--- NOTE | 2018-02-17 13:59 | ED ---
Dizziness HPI - General Chief Complaint: Dizziness Stated Complaint: vertigo Time Seen by Provider: 02/17/18 13:05 Source: patient, RN notes reviewed, old records reviewed Mode of arrival: wheelchair Limitations: no limitations - History of Present Illness Initial Comments: Patient is a 57-year-old female presents emergency department she complained of dizziness for the past three days. Patient states that she feels like the room is spinning. She's had the symptoms for vertigo. Patient states that she's had dizziness to the point of vomiting earlier yesterday. No vomiting today. She denies any fevers or chills. She does report some minor sinus congestion. Patient states that she had taken some Dramamine with some relief. She's nice any chest pain, shortness of breath. - Related Data Home Medications Medication Instructions Recorded Confirmed Citalopram Hydrobromide [CeleXA] 40 mg PO QAM 06/03/15 02/17/18 Furosemide [Lasix] 40 mg PO DAILY 06/03/15 02/17/18 Loratadine [Claritin] 10 mg PO DAILY PRN 06/03/15 02/17/18 ALPRAZolam [Xanax] 0.25 mg PO Q8HR PRN 02/17/18 02/17/18 Ergocalciferol [Vitamin D2] 50,000 unit PO Q14D 02/17/18 02/17/18 Iron 27 mg PO DAILY 02/17/18 02/17/18 Meloxicam [Mobic] 7.5 mg PO BID PRN 02/17/18 02/17/18 Naproxen [Naprosyn] 500 mg PO Q12HR 02/17/18 02/17/18 buPROPion HCL [Wellbutrin SR] 150 mg PO DAILY 02/17/18 02/17/18 Previous Rx's Medication Instructions Recorded Meclizine [Antivert] 25 mg PO TID #12 tab 02/17/18 Ondansetron Odt [Zofran Odt] 4 mg PO Q8HR PRN #12 tab 02/17/18 Allergies Allergy/AdvReac Type Severity Reaction Status Date / Time No Known Allergies Allergy Verified 02/17/18 13:25 Review of Systems ROS Statement: Those systems with pertinent positive or pertinent negative responses have been documented in the HPI. ROS Other: All systems not noted in ROS Statement are negative. Past Medical History Past Medical History: Atrial Fibrillation, GERD/Reflux, Hypertension, Osteoarthritis (OA), Sleep Apnea/CPAP/BIPAP Additional Past Medical History / Comment(s): uses cpap, varicose vein L leg, Swelling in both lower ext, AFIB RESOLVED SINCE 2012 History of Any Multi-Drug Resistant Organisms: None Reported Past Surgical History: Bariatric Surgery, Cholecystectomy, Hernia Repair, Hysterectomy, Joint Replacement Additional Past Surgical History / Comment(s): lapband, lapband removal & ventral hernia repair 2015. Colonoscopy, EGD,Whipple procedure,07/28 pancreas and benign removed, RT TKA 03/01/17 Past Anesthesia/Blood Transfusion Reactions: No Reported Reaction Past Psychological History: ADD/ADHD, Anxiety, Depression Smoking Status: Former smoker Past Alcohol Use History: Rare Past Drug Use History: None Reported - Past Family History Mother Family Medical History: Coronary Artery Disease (CAD) Father Family Medical History: Cancer Additional Family Medical History / Comment(s): Melanoma Sister(s) Family Medical History: Cancer Additional Family Medical History / Comment(s): Brain General Exam - General Exam Comments Initial Comments: This patient is a 57 year old female, no distress. Limitations: no limitations General appearance: alert, in no apparent distress Head exam: Present: atraumatic, normocephalic, normal inspection Eye exam: Present: normal appearance, PERRL, EOMI, other (horizontal nystagmus with Left lateral gaze). Absent: scleral icterus, conjunctival injection, periorbital swelling ENT exam: Present: normal exam, mucous membranes moist Neck exam: Present: normal inspection. Absent: tenderness, meningismus, lymphadenopathy Respiratory exam: Present: normal lung sounds bilaterally. Absent: respiratory distress, wheezes, rales, rhonchi, stridor Cardiovascular Exam: Present: regular rate, normal rhythm, normal heart sounds. Absent: systolic murmur, diastolic murmur, rubs, gallop, clicks GI/Abdominal exam: Present: soft, normal bowel sounds. Absent: distended, tenderness, guarding, rebound, rigid Back exam: Present: normal inspection Neurological exam: Present: alert, oriented X3, CN II-XII intact Psychiatric exam: Present: normal affect, normal mood Skin exam: Present: warm, dry, intact, normal color. Absent: rash Course Vital Signs 02/17/18 02/17/18 13:01 14:26 Temperature 98.3 F 98.6 F Pulse Rate 67 78 Respiratory 18 16 Rate Blood Pressure 139/86 130/60 O2 Sat by Pulse 95 95 Oximetry Medical Decision Making - Medical Decision Making 57-year-old female with you complain of vertigo like dizziness for the past three days. Room was spinning. She did have some vomiting episode. I did check a basic lab work, which shows some mild dehydration with a mildly elevated BUN and creatinine. Given a liter of fluid. Patient's EKG shows no acute changes, she denies headache, chest pain, or shortness of breath. . Physical exam does show evidence of nystagmus on left lateral gaze. She was given Zofran and meclizine and reports relief of her symptoms at this time. I did discharge the patient with the prescriptions and Eply maneuver. Discussed PCP and ENT follow up, return parameters discussed. - Lab Data Result diagrams: 02/17/18 14:04 02/17/18 14:04 Lab Results 02/17/18 02/17/18 Range/Units 14:04 14:04 WBC 8.3 (3.8-10.6) k/uL RBC 5.01 (3.80-5.40) m/uL Hgb 12.9 (11.4-16.0) gm/dL Hct 40.4 (34.0-46.0) % MCV 80.6 (80.0-100.0) fL MCH 25.7 (25.0-35.0) pg MCHC 31.9 (31.0-37.0) g/dL RDW 13.9 (11.5-15.5) % Plt Count 276 (150-450) k/uL Neutrophils % 67 % Lymphocytes % 25 % Monocytes % 3 % Eosinophils % 3 % Basophils % 1 % Neutrophils # 5.5 (1.3-7.7) k/uL Lymphocytes # 2.0 (1.0-4.8) k/uL Monocytes # 0.3 (0-1.0) k/uL Eosinophils # 0.2 (0-0.7) k/uL Basophils # 0.1 (0-0.2) k/uL Sodium 137 (137-145) mmol/L Potassium 5.2 H (3.5-5.1) mmol/L Chloride 107 (98-107) mmol/L Carbon Dioxide 22 (22-30) mmol/L Anion Gap 8 mmol/L BUN 26 H (7-17) mg/dL Creatinine 0.70 (0.52-1.04) mg/dL Est GFR (CKD-EPI)AfAm >90 (>60 ml/min/1.73 sqM) Est GFR (CKD-EPI)NonAf >90 (>60 ml/min/1.73 sqM) Glucose 95 (74-99) mg/dL Calcium 8.9 (8.4-10.2) mg/dL Total Bilirubin 0.5 (0.2-1.3) mg/dL AST 39 H (14-36) U/L ALT 35 (9-52) U/L Alkaline Phosphatase 86 (38-126) U/L Total Protein 6.5 (6.3-8.2) g/dL Albumin 3.7 (3.5-5.0) g/dL 02/17/18 14:54 EKG shows sinus rhythm ventricular rate of 60 bpm.. Vitals 160 ms. QRS ration 100 ms. QTC is 440/440 ms. - Radiology Data Radiology results: report reviewed Disposition Clinical Impression: Vertigo Disposition: HOME SELF-CARE Condition: Good Instructions: Vertigo (ED), Dizziness (ED) Additional Instructions: Patient advised to follow-up with primary care provider and ear nose and throat doctor. Return to emergency department if any alarming signs or symptoms occur. Prescriptions: Meclizine [Antivert] 25 mg PO TID #12 tab Ondansetron Odt [Zofran Odt] 4 mg PO Q8HR PRN #12 tab PRN Reason: Nausea Is patient prescribed a controlled substance at d/c from ED?: No Referrals: Nabil Olguin MD [Primary Care Provider] - 1-2 days Misbah Finley MD [STAFF PHYSICIAN] - 1-2 days Time of Disposition: 15:10
[2018-02-17 14:20] LABS: Basophils # (A) 0.1 k/uL (0-0.2); Basophils % (A) 1 %; Eosinophils # (A) 0.2 k/uL (0-0.7); Eosinophils % (A) 3 %; HCT 40.4 % (34.0-46.0); HGB 12.9 gm/dL (11.4-16.0); Lymphocytes % (A) 25 %; MCH 25.7 pg (25.0-35.0); MCHC 31.9 g/dL (31.0-37.0); MCV 80.6 fL (80.0-100.0); Mean Platelet Volume 7.9; Monocytes # (A) 0.3 k/uL (0-1.0); Monocytes % (A) 3 %; Neutrophils # (A) 5.5 k/uL (1.3-7.7); Neutrophils % (A) 67 %; Platelet Count 276 k/uL (150-450); RBC 5.01 m/uL (3.80-5.40); RDW 13.9 % (11.5-15.5); WBC 8.3 k/uL (3.8-10.6)
[2018-02-17 14:27] VITALS: BP 130/60; PULSE 78; RESP 16; TEMP 98.6
[2018-02-17 14:30] LABS: ALT 35 U/L (9-52); Albumin 3.7 g/dL (3.5-5.0); Alkaline Phosphatase 86 U/L (38-126); Anion Gap 8 mmol/L; Blood Urea Nitrogen 26 mg/dL (7-17); Calcium 8.9 mg/dL (8.4-10.2); Carbon Dioxide 22 mmol/L (22-30); Chloride 107 mmol/L (98-107); Glucose 95 mg/dL (74-99); Sodium 137 mmol/L (137-145); Total Bilirubin 0.5 mg/dL (0.2-1.3); Total Protein 6.5 g/dL (6.3-8.2)
[2018-02-17 15:08] LABS: AST 39 U/L (14-36); Potassium 5.2 mmol/L (3.5-5.1)
== END 2018-02-17 15:20 | disposition home or self-care (01) ==
LOC: EC 12:52
DX: R42 Dizziness and giddiness (principal); R09.89 Other specified symptoms and signs involving the circulatory and respiratory systems; R11.10 Vomiting, unspecified; H55.00 Unspecified nystagmus; I48.91 Unspecified atrial fibrillation; I10 Essential (primary) hypertension; M19.90 Unspecified osteoarthritis, unspecified site; G47.30 Sleep apnea, unspecified; Z99.89 Dependence on other enabling machines and devices; F90.9 Attention-deficit hyperactivity disorder, unspecified type; F32.9 Major depressive disorder, single episode, unspecified; F41.9 Anxiety disorder, unspecified; Z87.891 Personal history of nicotine dependence; Z79.899 Other long term (current) drug therapy; Z79.1 Long term (current) use of non-steroidal anti-inflammatories (NSAID)
CPT/HCPCS: 36415; 93005; 80053; 85025; 99284; 96374; 96361; J2405

== ENCOUNTER 2018-07-07 20:45 | Emergency (ER) | payer OTHER ==
[2018-07-07] MEDS ORDERED: SODIUM CHLORIDE 0.9% 1,000 ML BAG ONE (23:00)
[2018-07-08 00:37] LABS: Basophils % (A) 1 %; Eosinophils # (A) 0.3 k/uL (0-0.7); Eosinophils % (A) 5 %; HCT 41.8 % (34.0-46.0); HGB 13.3 gm/dL (11.4-16.0); Lymphocytes # (A) 1.9 k/uL (1.0-4.8); Lymphocytes % (A) 27 %; MCH 26.8 pg (25.0-35.0); MCHC 31.8 g/dL (31.0-37.0); MCV 84.2 fL (80.0-100.0); Mean Platelet Volume 8.9; Monocytes # (A) 0.3 k/uL (0-1.0); Monocytes % (A) 4 %; Neutrophils # (A) 4.4 k/uL (1.3-7.7); Neutrophils % (A) 62 %; Platelet Count 264 k/uL (150-450); RBC 4.96 m/uL (3.80-5.40); RDW 14.2 % (11.5-15.5); WBC 7.1 k/uL (3.8-10.6)
[2018-07-08 00:45] LABS: ALT 47 U/L (9-52); AST 34 U/L (14-36); Albumin 3.9 g/dL (3.5-5.0); Alkaline Phosphatase 95 U/L (38-126); Amylase 45 U/L (30-110); Anion Gap 9 mmol/L; Blood Urea Nitrogen 20 mg/dL (7-17); Calcium 9.2 mg/dL (8.4-10.2); Carbon Dioxide 28 mmol/L (22-30); Chloride 104 mmol/L (98-107); Glucose 110 mg/dL (74-99); Lipase 141 U/L (23-300); Magnesium 2.1 mg/dL (1.6-2.3); Sodium 141 mmol/L (137-145); Total Bilirubin 0.6 mg/dL (0.2-1.3); Total Protein 6.9 g/dL (6.3-8.2)
[2018-07-08 00:48] LABS: Potassium 4.5 mmol/L (3.5-5.1)
[2018-07-08 01:52] LABS: Amorphous Sediment,Urine Rare /hpf; Appearance,Urine Clear (Clear); Bacteria,Urine Rare /hpf; Bilirubin,Urine Negative (Negative); Blood,Urine Negative (Negative); Color,Urine Yellow; Glucose,Urine (UA) Negative (Negative); Ketones,Urine Negative (Negative); Leukocyte Esterase,Urine Trace (Negative); Mucus,Urine Few /hpf; Nitrite,Urine Negative (Negative); Protein,Urine Trace (Negative); RBC,Urine 1 /hpf (0-5); Specific Gravity,Urine 1.019 (1.001-1.035); Squamous Epithelial Cell,Urine 3 /hpf (0-4); WBC,Urine 6 /hpf (0-5)
== END 2018-07-08 02:18 | disposition home or self-care (01) ==
LOC: SUPCPDRO 20:45 → EC 20:45
DX: S30.1XXA Contusion of abdominal wall, initial encounter (principal); N39.0 Urinary tract infection, site not specified; R11.0 Nausea; Z87.891 Personal history of nicotine dependence; W22.8XXA Striking against or struck by other objects, initial encounter
CPT/HCPCS: 36415; 80053; 81001; 82150; 83690; 83735; 85025; 96361; 96374; 99284

== ENCOUNTER → 2018-08-17 | Outpatient (CLI) | payer OTHER ==
--- NOTE | 2018-08-17 16:13 | CT ---
EXAMINATION TYPE: CT abdomen pelvis w con DATE OF EXAM: 08/17/2018 COMPARISON: 08/25/2015 HISTORY: 58-year-old female with abdominal pain at incision site. History of hernia repair, cholecyst ectomy, and Whipple surgery. TECHNIQUE: Contiguous axial scanning of the abdomen and pelvis following administration of 100 ml Iso orestes 300 IV contrast. Delayed images through the kidneys and coronal/sagittal reconstructions perform ed. CT DLP: 1679 mGycm Automated exposure control for dose reduction was used. FINDINGS: Heart normal size without pericardial effusion. Lung bases clear without pleural effusion. There are postsurgical changes of Jason fundoplication. Additional postsurgical changes of Whipple p rocedure. Post surgical elias/clips are present at the site of pancreatic head resection. However, there is bulbous appearance to soft tissue density near measuring up to 4.6 cm axial image 31 and 3.5 cm, axial image 33. Findings probably represent redundant small bowel anastomosed to the pancreas an d region of the paul hepatis. Follow-up recommended. This can be compared to any available outside p riors as well to ensure stable appearance. Oral contrast extends down into the right lower quadrant but has not reached the colon at this time. There is hepatomegaly at 23.9 cm with marked hepatic steatosis. Portal venous system is patent. Adrenal glands, kidneys, and remnant of the pancreatic body and tail show no gross organomegaly. Sple en is upper limits of normal in size at 13.2 cm. No dilated small bowel, free fluid, or free air. No mesenteric or retroperitoneal lymphadenopathy see n. Scattered mild stool. No pericolonic inflammatory change. Bladder urine distended. Uterus surgically absent likely with a pessary device present. No abnormal f luid collection in the pelvis or pelvic lymphadenopathy. Bones: Degenerative changes of the hips and mid to lower lumbar spine along with thoracic endplate sp ondylosis. No specific abnormality seen along the patient's anterior midline incisional scar. IMPRESSION: 1. STATUS POST WHIPPLE PROCEDURE. THERE IS BULBOUS SOFT TISSUE THICKENING replacing the site of the p ancreatic head measuring up to 4.6 cm. This may simply represent bunched up/redundant and anastomosed small bowel and can be correlated with stable appearance to any available outside priors. 2. New hepatomegaly (23.9 cm) and severe hepatic steatosis. Appropriate clinical management recommend ed. 3. Midline ventral abdominal wall incisional scar without specific abnormality identified. 4. Foreign body in the vaginal canal, likely pessary device; clinically correlate.
== END | disposition home or self-care (01) ==
LOC: RADCTMAIN 12:57
PROVIDERS: ATTEND Surgery Plastic and Reconstructive Surgery
DX: T19.2XXA Foreign body in vulva and vagina, initial encounter (principal); L90.5 Scar conditions and fibrosis of skin; K76.0 Fatty (change of) liver, not elsewhere classified; R16.0 Hepatomegaly, not elsewhere classified; R10.84 Generalized abdominal pain; M79.89 Other specified soft tissue disorders; Z90.411 Acquired partial absence of pancreas
CPT/HCPCS: 74177; Q9967

== ENCOUNTER 2018-11-02 08:29 | Day surgery (SDC) | payer OTHER ==
[2018-10-31 11:51] VITALS: BMI 44.8
--- NOTE | 2018-11-02 07:35 | P.GSHP ---
History of Present Illness H&P Date: 11/02/18 CHIEF COMPLAINT: GERD and colon screen HISTORY OF PRESENT ILLNESS: The patient is a 58-year-old female who presents with gastroesophageal reflux disease and need for colon screen. Upper and lower endoscopy were offered for further evaluation and management. PAST MEDICAL HISTORY: Please see list. PAST SURGICAL HISTORY: Please see list. MEDICATIONS: Please see list. ALLERGIES: Please see list. SOCIAL HISTORY: No illicit drug use FAMILY HISTORY: No reports of Crohn disease or ulcerative colitis. REVIEW OF ORGAN SYSTEMS: CONSTITUTIONAL: No reports of fevers or chills. GI: Denies any blood in stools or constipation. PHYSICAL EXAM: VITAL SIGNS: Stable GENERAL: Well-developed pleasant in no acute distress. HEENT: No scleral icterus. Extraocular movements grossly intact. Moist buccal mucosa. NECK: Supple without lymphadenopathy. CHEST: Unlabored respirations. Equal bilateral excursions. CARDIOVASCULAR: Regular rate and rhythm. Distal 2+ pulses. ABDOMEN: Soft, nondistended. MUSCULOSKELETAL: No clubbing, cyanosis, or edema. ASSESSMENT: 1. Gastroesophageal reflux disease 2. Colon screen. PLAN: 1. Recommend proceeding with an upper and lower endoscopy Past Medical History Past Medical History: Atrial Fibrillation, GERD/Reflux, Hypertension, Liver Disease, Osteoarthritis (OA), Sleep Apnea/CPAP/BIPAP, Vascular Disorder Additional Past Medical History / Comment(s): uses cpap, varicose vein L leg,Swelling in both lower ext, AFIB RESOLVED SINCE 2012, enlarged liver, abdominal pain History of Any Multi-Drug Resistant Organisms: None Reported Past Surgical History: Bariatric Surgery, Cholecystectomy, Hernia Repair, Hysterectomy, Joint Replacement Additional Past Surgical History / Comment(s): lapband, lapband removal & ventral hernia repair 2015. Colonoscopy, EGD,Whipple procedure,1/3 pancreas and benign removed, ROBYN TKA Past Anesthesia/Blood Transfusion Reactions: No Reported Reaction Smoking Status: Former smoker - Past Family History Mother Family Medical History: Coronary Artery Disease (CAD) Father Family Medical History: Cancer Additional Family Medical History / Comment(s): Melanoma Sister(s) Family Medical History: Cancer Additional Family Medical History / Comment(s): Brain Medications and Allergies Home Medications Medication Instructions Recorded Confirmed Type Furosemide [Lasix] 40 mg PO DAILY 06/03/15 10/31/18 History Loratadine [Claritin] 10 mg PO DAILY PRN 06/03/15 10/31/18 History ALPRAZolam [Xanax] 0.25 mg PO Q8HR PRN 02/17/18 10/31/18 History Ergocalciferol [Vitamin D2] 50,000 unit PO Q14D 02/17/18 10/31/18 History Iron 27 mg PO DAILY 02/17/18 10/31/18 History Meloxicam [Mobic] 7.5 mg PO BID PRN 02/17/18 10/31/18 History Naproxen [Naprosyn] 500 mg PO Q12HR 02/17/18 10/31/18 History Ondansetron Odt [Zofran Odt] 4 mg PO Q8HR PRN #12 tab 02/17/18 10/31/18 Rx Meclizine [Antivert] 25 mg PO TID PRN 10/31/18 10/31/18 History Allergies Allergy/AdvReac Type Severity Reaction Status Date / Time No Known Allergies Allergy Verified 10/31/18 11:37
[~2018-11-02 08:29] MED LIST changes: -ACETAMINOPHEN TAB 500 MG TAB PO ONE; -HYDROmorphone 0.5 MG/0.5 ML SYRINGE IVP PRN; -MELOXICAM 7.5 MG TAB PO ONE; -ONDANSETRON 4 MG/2 ML VIAL IVP ONE; -TRANEXAMIC ACID 1,000 MG in SODIUM CHLORIDE 0.9% 100 ML IVPB ONE; -ceFAZolin 2 GM in SODIUM CHLORIDE 0.9% 100 ML IVPB ONE
[2018-11-02 08:48] VITALS: RESP 16; TEMP 96.8
[2018-11-02] MEDS ORDERED: LIDOCAINE 1% INJ 10MG/ML (20 ML MDV) ONE (09:11)
[2018-11-02] MEDS ORDERED: PROPOFOL 10 MG/ML 20 ML VIAL IV ONE (09:11)
--- NOTE | 2018-11-02 09:26 | P.PCN ---
Date of Procedure: 11/02/18 Description of Procedure: PREOPERATIVE DIAGNOSIS: Gastroesophageal reflux disease. Morbid obesity. 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 Morbid obesity. 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 INDICATIONS: The patient is a 58-year-old female who presents with a history of reflux disease. Benefits and risks of the procedure were described. Informed consent was obtained. DESCRIPTION: The patient was brought into the endoscopy suite and laid in the left lateral decubitus position. An Olympus gastroscope was passed along the posterior oropharynx down to the distal esophagus where the squamocolumnar junction was encountered at 37 cm from the incisors. The stomach was entered and bile reflux was found. Features of a gastroenterostomy with partial gastrectomy was identified without obstruction. Additional findings are listed below. Biopsies with cold forceps were obtained of the gastric pouch. The scope was advanced through the enterostomy additional 10 cm examined and unremarkable. Retroflexion of the scope confirmed Hill grade 2 lower esophageal valve. The squamocolumnar junction demonstrated LA grade A erosive esophagitis. The stomach was desufflated. The patient tolerated the procedure well. FINDINGS: Squamocolumnar junction 37 cm from the incisors. Diaphragmatic hiatus at 37 cm. Hill grade 2 lower esophageal valve. LA grade A erosive esophagitis. Altered anatomy with gastroenterostomy and distal gastrectomy Chronic gastritis RECOMMENDATIONS: Upper endoscopy as needed.
--- NOTE | 2018-11-02 09:43 | P.PCN ---
Date of Procedure: 11/02/18 Description of Procedure: PREOPERATIVE DIAGNOSIS: Altered bowel function Diarrhea POSTOPERATIVE DIAGNOSIS: Altered bowel function Diarrhea OPERATION: Colonoscopy to the ileocecal valve and appendiceal orifice. SURGEON: Samreen Polo MD. ANESTHESIA: MAC. INDICATIONS: The patient is a 58-year-old female who presents with change in bowel habits. Last colonoscopy 5 years ago. Benefits and risks were described and informed consent was obtained. DESCRIPTION OF PROCEDURE: The patient had undergone Gatorade, MiraLAX and Dulcolax prep. She had been brought into the operating room and laid in the left lateral decubitus position. After adequate intravenous sedation, the rectum was examined with 2% lidocaine jelly. No external hemorrhoids were encountered. The rectal tone was within normal limits. No lesions were palpated in the rectal vault. An Olympus colonoscope was advanced until the ileocecal valve and appendiceal orifice were clearly viewed. The prep was fair with clear visualization of the mucosal folds. The scope was removed with visualization of each mucosal fold. No scattered diverticulosis was encountered. No colonic polyps were found. No evidence of focal colitis was found. Retroflexion of the scope demonstrated no internal hemorrhoids without active bleeding or inflammation. The colon was desufflated. The patient had tolerated the procedure well. Withdrawal time was over 6 minutes. FINDINGS: Aronchik preparation quality scale 2 (1-5) No internal hemorrhoids No sigmoid diverticulosis No external prolapsed hemorrhoids. No arteriovenous malformations. No adenomatous polyps. No focal colitis. RECOMMENDATIONS: Lower endoscopy in 10 years, 2028 Plan - Discharge Summary Discharge Rx Participant: Yes New Discharge Prescriptions: No Action Loratadine [Claritin] 10 mg PO DAILY PRN PRN Reason: allergies Furosemide [Lasix] 40 mg PO DAILY Naproxen [Naprosyn] 500 mg PO Q12HR ALPRAZolam [Xanax] 0.25 mg PO Q8HR PRN PRN Reason: Anxiety Meloxicam [Mobic] 7.5 mg PO BID PRN PRN Reason: Pain Ergocalciferol [Vitamin D2] 50,000 unit PO Q14D Iron 27 mg PO DAILY Ondansetron Odt [Zofran Odt] 4 mg PO Q8HR PRN #12 tab PRN Reason: Nausea Meclizine [Antivert] 25 mg PO TID PRN PRN Reason: dizziness. Discharge Medication List Furosemide [Lasix] 40 mg PO DAILY 06/03/15 [History] Loratadine [Claritin] 10 mg PO DAILY PRN 06/03/15 [History] ALPRAZolam [Xanax] 0.25 mg PO Q8HR PRN 02/17/18 [History] Ergocalciferol [Vitamin D2] 50,000 unit PO Q14D 02/17/18 [History] Iron 27 mg PO DAILY 02/17/18 [History] Meloxicam [Mobic] 7.5 mg PO BID PRN 02/17/18 [History] Naproxen [Naprosyn] 500 mg PO Q12HR 02/17/18 [History] Ondansetron Odt [Zofran Odt] 4 mg PO Q8HR PRN #12 tab 02/17/18 [Rx] Meclizine [Antivert] 25 mg PO TID PRN 10/31/18 [History]
[2018-11-02 09:49] VITALS: BP 113/67; PULSE 53
== END 2018-11-02 10:22 | disposition home or self-care (01) ==
LOC: ORWHC2ENDO 08:29
PROVIDERS: ATTEND Surgery Plastic and Reconstructive Surgery
DX: K21.0 Gastro-esophageal reflux disease with esophagitis (principal); K29.50 Unspecified chronic gastritis without bleeding; K31.9 Disease of stomach and duodenum, unspecified; Z90.411 Acquired partial absence of pancreas; I10 Essential (primary) hypertension; M19.90 Unspecified osteoarthritis, unspecified site; G47.30 Sleep apnea, unspecified; Z99.89 Dependence on other enabling machines and devices; Z98.84 Bariatric surgery status; E66.01 Morbid (severe) obesity due to excess calories; Z96.653 Presence of artificial knee joint, bilateral; Z82.49 Family history of ischemic heart disease and other diseases of the circulatory system; Z79.899 Other long term (current) drug therapy; F32.9 Major depressive disorder, single episode, unspecified; F41.9 Anxiety disorder, unspecified; Z79.1 Long term (current) use of non-steroidal anti-inflammatories (NSAID); F90.9 Attention-deficit hyperactivity disorder, unspecified type; Z68.41 Body mass index [BMI] 40.0-44.9, adult
CPT/HCPCS: 88305; 45378; 43239; J2001; J2704

== ENCOUNTER → 2018-11-15 | Outpatient (CLI) | payer OTHER ==
[2018-11-15 12:44] LABS: HCT 42.2 % (34.0-46.0); HGB 13.5 gm/dL (11.4-16.0); MCH 27.5 pg (25.0-35.0); MCV 85.8 fL (80.0-100.0); Mean Platelet Volume 9.1; Platelet Count 264 k/uL (150-450); RBC 4.92 m/uL (3.80-5.40); RDW 14.9 % (11.5-15.5); WBC 7.4 k/uL (3.8-10.6)
[2018-11-15 12:51] LABS: Partial Thromboplastin Time 25.5 sec (22.0-30.0); Prothrombin Time 10.3 sec (9.0-12.0)
[2018-11-15 20:28] LABS: Albumin 4.1 g/dL (3.80-4.90); Albumin/Globulin Ratio 1.95 (1.60-3.17); Anion Gap 7.1 mmol/L (4.00-12.00); Calcium 9.1 mg/dL (8.7-10.3); Carbon Dioxide 25.9 mmol/L (21.6-31.8); Globulin 2.1 g/dL (1.6-3.3); LDL Cholesterol,Calculated 55.4 mg/dL (0.0-131.0); Magnesium 2.1 mg/dL (1.5-2.4); Phosphorus 3.5 mg/dL (2.4-5.1); Potassium 4.3 mmol/L (3.5-5.5); Total Bilirubin 0.6 mg/dL (0.3-1.2); Total Protein 6.2 g/dL (6.2-8.2); VLDL Calculation 14.6 mg/dL (5.00-40.00)
[2018-11-15 20:57] LABS: Iron Saturation 13.39 (12.00-45.00)
[2018-11-15 21:10] LABS: Vitamin D 25 Hydroxy 54.3 ng/mL (30.0-100.0)
[2018-11-15 21:19] LABS: Folate, Serum 19.6 ng/mL; Parathyroid Hormone Intact 128.5 pg/mL (14.0-72.0)
[2018-11-15 22:43] LABS: Hemoglobin A1C 5.7 % (4.0-6.0)
[2018-11-16 12:53] LABS: Zinc, Serum 78 ug/dL (60-130)
[2018-11-17 09:00] LABS: Vit B1(Thiamine) 71 ug/L (38-122)
== END | disposition home or self-care (01) ==
LOC: LABWHC1 11:38
PROVIDERS: ATTEND Surgery Plastic and Reconstructive Surgery
DX: E66.01 Morbid (severe) obesity due to excess calories (principal); E21.1 Secondary hyperparathyroidism, not elsewhere classified; D50.8 Other iron deficiency anemias; K90.89 Other intestinal malabsorption; E55.9 Vitamin D deficiency, unspecified; K74.1 Hepatic sclerosis; N19 Unspecified kidney failure; K50.90 Crohn's disease, unspecified, without complications
CPT/HCPCS: 36415; 80053; 80061; 82306; 82525; 82607; 82728; 82746; 83036; 83540; 83550; 83735; 83970; 84100; 84134; 84255; 84425; 84443; 84590; 84630; 85027; 85610; 85730

== ENCOUNTER → 2019-02-01 | Outpatient (CLI) | payer OTHER ==
--- NOTE | 2019-02-02 07:17 | US ---
EXAMINATION TYPE: US thyroid st tissue head/neck DATE OF EXAM: 02/01/2019 COMPARISON: NONE CLINICAL HISTORY: E21.3 Parathryroidism. abnormal labs GLAND SIZE: Right Lobe: 4.7 x 1.4 x 2.0 cm Overall Parenchyma: heterogenous Left Lobe: 4.2 x 1.6 x 1.6 cm Overall Parenchyma: heterogeneous Isthmus Thickness: 0.5 cm NODULES RIGHT: # of nodules measured on right: 1 1. 0.8 X 0.9 x 0.4 cm hypoechoic solid nodule at the mid pole with well-defined margins. This nodu le is wider than tall and shows no intranodular vascularity. Prior size: [facility] LEFT: # of nodules measured on left: 1 1. 0.9 X 1.0 x 0.6 cm hypoechoic solid nodule at the mid pole with irregular margins. This nodule is wider than tall and shows no intranodular vascularity. Prior size: [facility] HEALTH CLINICIAN ISTHMUS: # of nodules measured in the isthmus: 0 Bilateral neck scanned, no evidence of lymphadenopathy. no parathyroid tissue seen bilaterally IMPRESSION: Small bilateral thyroid nodules measuring up to 1 cm on the left. No findings to suspect for a thyroi d adenoma surrounding the thyroid gland. Nuclear medicine parathyroid scan could be performed to eval uate for ectopic parathyroid adenoma.
== END | disposition home or self-care (01) ==
LOC: RADUSWWP 15:35
PROVIDERS: ATTEND Surgery Plastic and Reconstructive Surgery
DX: E04.2 Nontoxic multinodular goiter (principal); E21.3 Hyperparathyroidism, unspecified
CPT/HCPCS: 76536

== ENCOUNTER 2022-01-13 08:28 | Day surgery (SDC) | payer OTHER ==
[2022-01-09 15:29] VITALS: BMI 45.7
[~2022-01-13 08:28] MED LIST changes: -LACTATED RINGERS 1,000 ML IV SCH; -LIDOCAINE 1% 20 ML VIAL (10MG/ML) FOR IV START INTRADERMA PRN; +SODIUM CHLORIDE 0.9% 1,000 ML IV SCH
[2022-01-13 08:47] VITALS: RESP 16; TEMP 98
[2022-01-13] MEDS ORDERED: SODIUM CHLORIDE 0.9% 500 ML 450 ML IV ONE (09:50)
[2022-01-13] MEDS ORDERED: LIDOCAINE 1% INJ 10MG/ML (5 ML VIAL-PF) SQ ONE ×3 (09:51)
[2022-01-13] MEDS ORDERED: MIDAZOLAM 2 MG/2 ML VIAL IV ONE (09:51)
--- NOTE | 2022-01-13 10:09 | P.EPPROC ---
- EP Procedure Note Electrophysiology Procedure Note: Loop monitor implant Primary physicians: Dr. Lopez [facility] Porter: Indication: Paroxysmal atrial fibrillation evaluation and management Patient was brought to the EP lab in a fasting state. Written informed consent was obtained prior to the procedure. The left pectoral area was prepped and draped per protocol. Intravenous antibiotic was administered preoperatively. A subcutaneous Loop monitor was implanted successfully and the wound was closed per protocol. The device was programmed to detect significant serena- arrhythmic and tachy-arrhythmic events, per protocol. Device and programming details: A. fib protocol Patient underwent EP procedure under conscious sedation/moderate sedation, monitoring of the level of consciousness and physiologic parameters including but not limited to vital signs and oxygenation. Patient tolerated the procedure well without any acute complications. Start time: 9.51 Stop time: 10.01
[2022-01-13 10:19] VITALS: BP 136/70; PULSE 56
== END 2022-01-13 10:38 | disposition home or self-care (01) ==
LOC: CATHEP 08:28
PROVIDERS: ATTEND Internal Medicine Clinical Cardiac Electrophysiology
DX: G47.30 Sleep apnea, unspecified (principal); E66.8 Other obesity; Z68.42 Body mass index [BMI] 45.0-49.9, adult; I10 Essential (primary) hypertension; Z20.822 Contact with and (suspected) exposure to COVID-19; I51.7 Cardiomegaly; Z79.899 Other long term (current) drug therapy
CPT/HCPCS: 33285; 87635; C1764; J2250; J0690; J2001